=== PATIENT | female | born 1950 | race Caucasian/White ===

== ENCOUNTER → 2018-03-11 | Outpatient (CLI) | payer MEDICARE, BC, OTHER ==
[~2018-03-11] MED LIST: CALCIUM 1200 W/1 SGL PO; CENTRUM SILVER1 TA1 PO; CIPRO 250MG TA250 MG PO; CLINORIL200 MG PO; FE-TABS325 MG PO; FOLIC ACID0.4 MG PO; GABAPENTIN100 M1 PO; METFORMIN1000 MG PO; PRINIVIL40 MG PO; VITAMIN C PO; ZETIA 10MG TAB10 MG PO
== END ==
LOC: COL.LAB 11:38
DX: Z01.812 Encounter for preprocedural laboratory examination (principal)

== ENCOUNTER 2018-03-25 08:18 | Day surgery (SDC) | payer MEDICARE, BC, OTHER ==
[~2018-03-25] VITALS: Ht 155.1 cm; Wt 95.0 kg
[2018-03-25] VITALS (10 sets, daily range): BP systolic 89–121; BP diastolic 48–71; PULSE 60–77; TEMP 98
[~2018-03-25 08:18] MED LIST changes: -CALCIUM 1200 W/1 SGL PO; +CALCIUM 600 PLU1 TAB PO; +CENTRUM SILVER1 CTB PO; -CENTRUM SILVER1 TA1 PO; +CLINORIL 2200 MG/TAB PO; -CLINORIL200 MG PO; -FE-TABS325 MG PO; +FERROUS SU325 MG/TAB PO; -GABAPENTIN100 M1 PO; +GLUCOPHAGE1000 MG PO; -METFORMIN1000 MG PO; +NEURONTIN100 MG/CAP PO; -VITAMIN C PO; +VTAMINC250TA PO
[2018-03-25] MEDS ORDERED: SYNTHROID 0.0.025 MG PO (08:36)
[2018-03-25] MEDS ORDERED: VICTOZA6 MG/ML SQ (08:38)
[2018-03-25] MEDS ORDERED: ASPIRIN E.C. 8181 MG PO ×2 (08:42→12:40)
[2018-03-25] MEDS ORDERED: NYSTATIN POWDER30 GM TOP (08:43)
[2018-03-25] MEDS ORDERED: ZYLOPRIM 100MG100 MG PO (08:43)
[2018-03-25] MEDS ORDERED: ZYLOPRIM 100MG100 MG (08:43)
[2018-03-25] MEDS ORDERED: [UNRECOGNIZED DRUG - OTHER] OP (08:45)
[2018-03-25 08:57] LABS: HEMOGLOBIN 12.1 g/dl (12.5-16.0); MEAN CELL VOLUME 91 fl (80.0-100.0); MEAN CORPUSCULAR HEMOGLOBIN 31 pg (27.0-31.0); MEAN CORPUSCULAR HGB CONC 33 g/dl (33.0-37.0); MEAN PLATELET VOLUME 9.7 fl (7.4-10.4); PLATELET COUNT 242 K/mm3 (130-400); RED BLOOD COUNT 3.97 M/mm3 (4.10-5.30); REDCELL DISTRIBUTION WIDTH-CV 12.7 % (11.5-14.5)
[2018-03-25 08:58] LABS: HEMATOCRIT 36.3 % (37.0-47.0)
[2018-03-25 09:01] LABS: PROTHROMBIN TIME 11.6 SECONDS (9.7-12.8)
[2018-03-25 09:04] LABS: CALCIUM 9.9 mg/dL (8.4-10.2); CREATININE, serum 1.08 mg/dL (0.52-1.25); POTASSIUM 4.8 mmol/L (3.4-5.0)
[2018-03-25] MEDS ORDERED: TOPROL XL 25MG25 MG PO (12:40)
== END 2018-03-25 18:04 | disposition home or self-care (01) ==
LOC: COL.CAR 08:18
PROVIDERS: Internal Medicine Cardiovascular Disease
DX: I25.10 Atherosclerotic heart disease of native coronary artery without angina pectoris (principal); R94.39 Abnormal result of other cardiovascular function study; I08.1 Rheumatic disorders of both mitral and tricuspid valves; I10 Essential (primary) hypertension; E03.9 Hypothyroidism, unspecified; E66.9 Obesity, unspecified; M19.90 Unspecified osteoarthritis, unspecified site; M1A.9XX0 Chronic gout, unspecified, without tophus (tophi); E11.42 Type 2 diabetes mellitus with diabetic polyneuropathy; E78.2 Mixed hyperlipidemia; Z88.8 Allergy status to other drugs, medicaments and biological substances; Z79.82 Long term (current) use of aspirin; Z79.51 Long term (current) use of inhaled steroids; Z79.4 Long term (current) use of insulin; Z87.891 Personal history of nicotine dependence; Z82.49 Family history of ischemic heart disease and other diseases of the circulatory system; Z83.3 Family history of diabetes mellitus; Z82.3 Family history of stroke; Z82.61 Family history of arthritis
CPT/HCPCS: J2250; J3010; Q9967

== ENCOUNTER → 2018-04-22 | Outpatient (CLI) | payer MEDICARE, BC, OTHER ==
[~2018-04-22] MED LIST changes: +ASPIRIN E.C. 8181 MG PO; +NYSTATIN POWDER30 GM TOP; +SYNTHROID 0.0.025 MG PO; +TOPROL XL 25MG25 MG PO; +VICTOZA6 MG/ML SQ; +ZYLOPRIM 100MG100 MG; +ZYLOPRIM 100MG100 MG PO; +[UNRECOGNIZED DRUG - OTHER] OP
== END ==
LOC: COL.LAB 12:11
DX: Z01.812 Encounter for preprocedural laboratory examination (principal)

== ENCOUNTER → 2018-12-28 | Outpatient (CLI) | payer MEDICARE, BC, OTHER | LOC: MC.RAD 14:45 | DX: Z12.31 Encounter for screening mammogram for malignant neoplasm of breast (principal) ==

== ENCOUNTER → 2020-01-02 | Outpatient (CLI) | payer MEDICARE, BC, OTHER | LOC: MC.RAD 09:30 | DX: Z12.31 Encounter for screening mammogram for malignant neoplasm of breast (principal) ==

== ENCOUNTER → 2020-06-21 | Outpatient (CLI) | payer MEDICARE, BC, OTHER | LOC: COL.RAD 11:55 | DX: M25.552 Pain in left hip (principal); Z96.643 Presence of artificial hip joint, bilateral ==

== ENCOUNTER → 2020-06-21 | Outpatient (CLI) | payer MEDICARE, BC, OTHER | LOC: MC.RAD 10:30 | DX: N63.10 Unspecified lump in the right breast, unspecified quadrant (principal) ==

== ENCOUNTER 2020-09-06 12:27 | Observation (INO) | payer MEDICARE, BC, OTHER ==
[~2020-09-06] VITALS: Ht 154.9 cm; Wt 93.4 kg
[2020-09-06 13:05] LABS: BASO # 0.1 (0.0-0.2); BASO % 0.6 % (0.0-2.0); EOS # 0.2 (0.0-0.7); GRAN # 8.2 (1.4-6.5); GRAN % 76.5 % (42.2-75.2); HEMATOCRIT 38.7 % (37.0-47.0); HEMOGLOBIN 12.9 g/dl (12.5-16.0); LYMPH # 1.6 (1.2-3.4); LYMPH % 14.7 % (20.0-51.0); MEAN CELL VOLUME 92 fl (80.0-100.0); MEAN CORPUSCULAR HEMOGLOBIN 31 pg (27.0-31.0); MEAN CORPUSCULAR HGB CONC 33 g/dl (33.0-37.0); MEAN PLATELET VOLUME 9.5 fl (7.4-10.4); MONO # 0.6 (0.1-0.6); MONO % 5.6 % (1.7-9.3); PLATELET COUNT 289 K/mm3 (130-400); REDCELL DISTRIBUTION WIDTH-CV 12.7 % (11.5-14.5)
[2020-09-06 13:11] LABS: ALBUMIN 4.2 gm/dL (3.5-5.0); BILIRUBIN,TOTAL 0.4 mg/dL (0.0-1.0); CALCIUM 9.4 mg/dL (8.4-10.2); CREATININE, serum 0.95 (0.52-1.25); POTASSIUM 4.3 mmol/L (3.4-5.0); TOTAL PROTEIN 7.1 gm/dL (6.4-8.2)
[2020-09-06] MEDS ORDERED: TRULICITY1.5 MG/0.5 SQ (14:44)
[2020-09-06 20:53] VITALS: BP 143/56; PULSE 75; TEMP 97.9
[2020-09-06 23:04] VITALS: BP 118/54; PULSE 65; TEMP 97.8
--- NOTE | 2020-09-07 02:49 | NUR ---
pt arrived from ER via wheelchair earlier this evening. assessment and medrec completed. pt blood sugar when she first arrived on the floor was 470, this nurse notified Deneen SANCHEZ and gave 10 units insulin per orders. rechecked blood sugar after an hour and was 320. will continue to monitor blood sugar every 4 hours per orders.
[2020-09-07 04:14] VITALS: BP 114/50; PULSE 57; TEMP 97.9
--- NOTE | 2020-09-07 05:40 | NUR ---
Pt sleeping in bed most of the night, blood sugars continue to trend down. pt reports that numbness and swelling in the face continue to feel better. no other needs at this time, will continue to monitor.
[2020-09-07 06:41] LABS: BASO % 0.1 % (0.0-2.0); GRAN % 84.7 % (42.2-75.2); HEMOGLOBIN 11.6 g/dl (12.5-16.0); LYMPH # 1.3 (1.2-3.4); LYMPH % 13.9 % (20.0-51.0); MEAN CELL VOLUME 91 fl (80.0-100.0); MEAN CORPUSCULAR HEMOGLOBIN 31 pg (27.0-31.0); MEAN CORPUSCULAR HGB CONC 34 g/dl (33.0-37.0); MEAN PLATELET VOLUME 9.8 fl (7.4-10.4); MONO # 0.1 (0.1-0.6); MONO % 0.7 % (1.7-9.3); PLATELET COUNT 240 K/mm3 (130-400); RED BLOOD COUNT 3.77 M/mm3 (4.10-5.30); REDCELL DISTRIBUTION WIDTH-CV 12.7 % (11.5-14.5)
--- NOTE | 2020-09-07 06:45 | NUR ---
Patient lying in bed with eyes open. Alert and oriented x3. Denies pain. Patient says that she feels better than she did yesterday and feels like the swelling in her face has decreased. Minimal left eye lid swelling noted. Patient denies any concerns or needs at this time.
[2020-09-07 06:47] LABS: HEMATOCRIT 34.4 % (37.0-47.0)
[2020-09-07 07:11] LABS: ALBUMIN 3.9 gm/dL (3.5-5.0); BILIRUBIN,TOTAL 0.3 mg/dL (0.0-1.0); CALCIUM 9.2 mg/dL (8.4-10.2); CREATININE, serum 0.95 (0.52-1.25); POTASSIUM 4.3 mmol/L (3.4-5.0); TOTAL PROTEIN 6.5 gm/dL (6.4-8.2)
[2020-09-07 08:01] VITALS: BP 127/82; PULSE 63; TEMP 97.9
--- NOTE | 2020-09-07 10:12 | NUR ---
Patient requests to shower. IV covered and tele disconnected for patient to get in shower.
--- NOTE | 2020-09-07 10:25 | NUR ---
Patient done in shower. Provider in room to talk with patient and provide discharge instructions. Patient disconnected from IV fluids at this time. COntacted tele and explained that patient will be discharged so we will not reconnect tele. Patient aware that we will need to get discharge paperwork together. Denies additional needs.
[2020-09-07] MEDS ORDERED: NORVASC 5MG5 MG/TAB PO (11:08)
[2020-09-07] MEDS ORDERED: PREDNISONE10 MG PO (11:11)
[2020-09-07] MEDS ORDERED: PEPCID 20MG TAB20 MG PO (11:12)
[2020-09-07] MEDS ORDERED: CLARITIN 1010 MG/TAB PO (11:14)
--- NOTE | 2020-09-07 11:53 | NUR ---
Accu check 484, was rechecked twice. Contacted Dr. Jones and informed of elevated blood suganr. Dr. Jones says to administer the Novolog 14 units as ordered and we will continue to monitor her blood sugars. Novolog administered as prescribed. Lab informed to come draw a stat blood glucose. Patient educated on blood sugar and how it could be elevated when on steroids and that we are going to continue to monitor her blood sugars so she would not be able to be discharged until maybe later this afternoon. Patient verbalizes understanding and denies additional needs at this time.
[2020-09-07 12:00] VITALS: BP 133/104; PULSE 73; TEMP 98
--- NOTE | 2020-09-07 13:31 | NUR ---
Accu check 324. Patient sitting on edge of bed eating lunch. Denies needs at this time.
[2020-09-07 13:32] VITALS: BP 149/65
--- NOTE | 2020-09-07 14:55 | NUR ---
Dr. Jones updated that patient accu check 390 at this time. Orders recieved for Novolog 5 units IV now and then to recheck blood sugar in one hour. If under 300 Dr. Jones says patient can discharge at that time. If still elevated continue to monitor.
--- NOTE | 2020-09-07 15:03 | NUR ---
Patient informed of insulin IV and recheck blood sugar one hour later. Administered as prescribed. Patient denies additional needs.
--- NOTE | 2020-09-07 15:36 | NUR ---
Plan is to return home independently. Patient reports that she is hard of hearing and uses hearing devices. Patient reports that her PCP is Dr. Lubin. Patient reports that she is okay with a follow-up appointment in one week. Patient shares that she use [facility] in [facility] for medications for short term, [facility] Patient indicated that she resides north of [facility]. Patient indicated that her son Jesus Alberto is her DPOA and [facility] is apart of her care plan. Patient denies any Dme use. Patient shares that she is able to transport herself. Patient denies having any care concerns at this time. SW edcuated on services available, no addtional PT or OT concerns.
[2020-09-07 16:00] VITALS: BP 146/64; PULSE 71; TEMP 97.9
--- NOTE | 2020-09-07 16:28 | NUR ---
BS 382. Administer scheduled Novolog per SS. Explain that we will recheck her BS in one hour. Patient verbalizes understanding.
--- NOTE | 2020-09-07 17:20 | NUR ---
Blood sugar at 374. Spoke with Dr. Jones and he says that it is okay to discharge patient at this time.
--- NOTE | 2020-09-07 17:28 | NUR ---
Reviewed all discharge instructions with the patient. Questions answered. Patient verbalizes understanding to all and signs discharge paperwork. Packet provided to the patient. Patient will call staff when her son is here to pick her up.
--- NOTE | 2020-09-07 17:50 | NUR ---
Patient calls and says that her son is at the ER entrance ready to pick her up. Patient assisted out to POV by [facility], with all belongings.
== END 2020-09-07 17:50 | disposition home or self-care (01) ==
LOC: COL.ER 12:27 → MEDICAL 14:29
PROVIDERS: Family Medicine; Physician Assistant
DX: T78.3XXA Angioneurotic edema, initial encounter (principal); E87.1 Hypo-osmolality and hyponatremia; E11.65 Type 2 diabetes mellitus with hyperglycemia; E11.40 Type 2 diabetes mellitus with diabetic neuropathy, unspecified; I10 Essential (primary) hypertension; M10.9 Gout, unspecified; E03.9 Hypothyroidism, unspecified; E78.5 Hyperlipidemia, unspecified; Z79.84 Long term (current) use of oral hypoglycemic drugs; Z79.899 Other long term (current) drug therapy; Z79.1 Long term (current) use of non-steroidal anti-inflammatories (NSAID); Z79.890 Hormone replacement therapy; Z88.8 Allergy status to other drugs, medicaments and biological substances; Z87.891 Personal history of nicotine dependence; G89.29 Other chronic pain; M54.5 Low back pain; Z79.82 Long term (current) use of aspirin
CPT/HCPCS: J0171; J1100; J1200; J1815; J2920; J7030; J7512

== ENCOUNTER → 2021-01-09 | Outpatient (CLI) | payer MEDICARE, BC, OTHER ==
[~2021-01-09] MED LIST changes: +CLARITIN 1010 MG/TAB PO; +NORVASC 5MG5 MG/TAB PO; +PEPCID 20MG TAB20 MG PO; +PREDNISONE10 MG PO; +TRULICITY1.5 MG/0.5 SQ
== END ==
LOC: MC.RAD
DX: Z12.31 Encounter for screening mammogram for malignant neoplasm of breast (principal)